=== PATIENT | female | born 1990 | race African-American/Black ===

== ENCOUNTER 2018-01-10 12:05 | Emergency (ER) | payer OTHER ==
[~2018-01-10] VITALS: Ht 160 cm; Wt 65.9 kg
[2018-01-10 12:42] VITALS: BP 121/79
[2018-01-10] MEDS ORDERED: GuaiFENesin/D-METHORPHAN [SUGAR-FREE] 200-20MG/10 ML SYRUP UDCUP PO ONE (13:30)
== END 2018-01-10 14:02 | disposition home or self-care (01) ==
LOC: EMS 12:06
DX: J06.9 Acute upper respiratory infection, unspecified (principal)
CPT/HCPCS: 99282

== ENCOUNTER 2018-02-20 10:15 | Emergency (ER) | payer OTHER ==
[~2018-02-20] VITALS: Ht 172.7 cm; Wt 72.7 kg
[2018-02-20 10:36] VITALS: BP 122/64
== END 2018-02-20 11:44 | disposition home or self-care (01) ==
LOC: EMS 10:19
DX: M62.838 Other muscle spasm (principal); R03.0 Elevated blood-pressure reading, without diagnosis of hypertension; F17.210 Nicotine dependence, cigarettes, uncomplicated; Z32.01 Encounter for pregnancy test, result positive
CPT/HCPCS: 99283